=== PATIENT | male | born 1950 | race Caucasian/White ===

== ENCOUNTER 2016-08-10 11:49 | Emergency (ER) | payer OTHER ==
--- NOTE | 2016-08-10 13:29 | ED ORDER SUMMARY ---
..... Patient: QUAN CHAVIS OrderSheet [facility] VisitID: [id number] [address] [place] [address] 65y, M Registration Date/Time: 08/10/2016 ORDER SHEET Weight: 92.9 kg (stated) Allergies: BP MED GENERAL ORDERS: MEDICATION ORDERS: Toradol IM 60 mg (NOW) (13:14 08/10/2016 HBivens A.R.N.P.) (Ack 14:00 DDean R.N.) (15:17 DDean R.N.) IV FLUIDS: ORDER SHEET NOTES: [Electronically signed by Anastasia Mckeon A.R.N.P. (14:15 08/10/2016)] [Electronically signed by Martita Shen R.N. (15:21 08/10/2016)] [Electronically locked/signed by Martita Shen R.N. (15:21 08/10/2016)]
--- NOTE | 2016-08-10 13:29 | ED NURSING NOTES ---
Clinical Report - Nurses [facility] [address] [place] [address] 08/10/2016 11:50 Patient: QUAN CHAVIS TRIAGE Triage time 11:53 Aug 10 2016. Acuity: LEVEL 3. Chief Complaint: BACK PAIN. Alert. No acute distress. (anxious). KERLINE COMA SCORE: [place] Coma Scale: 15- eyes open spontaneously (4); best verbal response- oriented x 4 (5); best motor response- obeys commands (6). --11:58 Carmel Ellis R.N. 11:52 08/10/16. BP: 165/84. HR: 86. RR: 18. O2 saturation: 95%. Temp: 98.2 F. Pain level now 03/11. --11:58 Carmel Ellis R.N. Weight: 92.9 kg stated. Height/Length: 72 inches Per Patient. BMI: 27.8. --11:51 Carmel Ellis R.N. Medications BP med - unknown. --11:56 Carmel Ellis R.N. Lasix Oral (unknown dose). --11:56 Carmel Ellis R.N. Potassium Oral unknown dose. --11:56 Carmel Ellis R.N. Allergies BP MED . --11:57 Carmel Ellis R.N. Medication/allergy information source: the patient (may need to get meds from Ivanna Clark). --11:58 Carmel Ellis R.N. History Arrived by EMS. Historian: patient. Primary physician (Ivanna Clark). 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 03/11. Can not ambulate.). This started just prior to arrival. He has had trouble walking. No history of recent trauma. Occurred at home. Treatment EXTRA HAND: None. PAST MEDICAL HX: Has not received seasonal influenza immunization. SOCIAL HX: Heavy tobacco smoker (cigarette)- more than 2 packs per day. Regular alcohol use. No drug use. No infectious disease exposure. FALL RISK ASSESSMENT: Fall risk assessment completed. No fall risk identified. NUTRITIONAL RISK ASSESSMENT: The nutritional risk assessment revealed no deficiencies. FUNCTIONAL ASSESSMENT: Functional assessment: no impairments noted. LEARNING NEEDS ASSESSMENT: The learning needs assessment revealed no barriers. SKIN INTEGRITY ASSESSMENT: Skin integrity risk assessment completed. No skin integrity risk identified. --11:58 Carmel Ellis R.N. PROBLEMS: Back Pain. COPD - Chronic Obstructive Pulmonary Disease. Hypertension. --11:58 Carmel Ellis R.N. ADDITIONAL SURGERIES: Back Surgery. --11:58 Carmel Ellis R.N. Interventions ID band on patient. To room. --11:58 Carmel Ellis R.N. PHYSICAL ASSESSMENT 11:52. Patient gowned. GENERAL / NEURO / PSYCH: Alert. Oriented X 4. Appears in pain. RESPIRATORY: Respirations not labored. CVS: Capillary refill less than 2 seconds. GI / : Abdomen soft. BACK: Limited ROM. Soft tissue tenderness. --15:21 Martita Shen R.N. NURSING PROGRESS NOTES Patient ready for evaluation- ED physician notified. --11:58 Carmel Ellis R.N. 13:45 08/10/2016 Toradol (Ketorolac Tromethamine) IM 60 mg given. Given in the right ventral gluteus. Allergies verified and confirmed 5 rights. --15:17 Martita Shen R.N. 11:52. Cold pack applied. Patient gowned. Head of bed elevated. Reassurance given. Patient identifiers checked. Call light placed in reach. Side rails up. Bed placed in lowest position. Patient ready for evaluation- chart flagged. Care transferred and report received. --15:20 Martita Shen R.N. DISPOSITION / DISCHARGE 13:50. Condition at departure: unchanged and stable. No learning barriers present. Reviewed medication(s) (flexeril, ultram, motrin). Treatments reviewed (ice, rest). Patient verbalized understanding. Written instructions provided in Kiswahili. The patient was discharged home and unaccompanied at time of discharge. He left the Emergency Department ambulatory and via private vehicle. Patient driving. --15:19 Martita Shen R.N. 13:50 08/10/16. BP: 150/86. HR: 82. RR: 18. O2 saturation: 97%. Temp: deferred. Pain level now: 03/11. --15:19 Martita Sehn R.N. Locked/Released at 08/10/2016 15:21 by Martita Shen R.N.
--- NOTE | 2016-08-10 13:29 | ED ORDER SUMMARY ---
..... Patient: QUAN CHAVIS OrderSheet [facility] VisitID: [id number] [address] [place] [address] 65y, M Registration Date/Time: 08/10/2016 ORDER SHEET Weight: 92.9 kg (stated) Allergies: BP MED GENERAL ORDERS: MEDICATION ORDERS: Toradol IM 60 mg (NOW) (13:14 08/10/2016 HBivens A.R.N.P.) (Ack 14:00 DDean R.N.) (15:17 DDean R.N.) IV FLUIDS: ORDER SHEET NOTES: [Electronically signed by Anastasia Mckeon A.R.N.P. (14:15 08/10/2016)] [Electronically signed by Martita Shen R.N. (15:21 08/10/2016)] [Electronically locked/signed by Martita Shen R.N. (15:21 08/10/2016)]
--- NOTE | 2016-08-10 13:29 | ED CLINICAL REPORT ---
Clinical Report - Physicians/Mid Levels [facility] [address] [place] [address] 08/10/2016 11:50 Patient: QUNA CHAVIS Time Seen: 13:04; initial patient contact, initial documentation, patient care assumed. Arrived- By ambulance. Historian- patient. HISTORY OF PRESENT ILLNESS Chief Complaint: BACK PAIN. It is described as being severe and in the area of the lower lumbar spine and right lower lumbar spine and radiating to the right hip. The quality is noted to be "pain" and similar to prior episodes. Modifying factors- worsened by standing, rotation of the body to the right or left, bending over, lifting, coughing, laughing or taking deep breaths. Not relieved by anything. Onset was just prior to arrival and it is still present but is improving. No bladder dysfunction, bowel dysfunction, sensory loss or motor loss. Patient notes an injury but denies injury to the head or neck. Mechanism of injury- he was lifting and bending. Occurred at home. No other injury. Similar symptoms previously: Chronically. Recent medical care: Not recently seen/assessed. REVIEW OF SYSTEMS No fever, difficulty with urination, urinary frequency or hematuria. All systems otherwise negative, except as recorded above. PAST HISTORY See nurses notes. PROBLEMS: Back Pain. COPD - Chronic Obstructive Pulmonary Disease. Hypertension. --11:58 Carmel Ellis R.N. ADDITIONAL SURGERIES: Back Surgery. --11:58 Carmel Ellis RJasonN. SOCIAL HISTORY Heavy tobacco smoker. Regular alcohol use. No drug use. No recent travel. Is a local resident. FAMILY HISTORY Negative. ADDITIONAL NOTES The nursing notes have been reviewed with agreement regarding the chief complaint, HPI, ROS, PMH and patient medications and allergies. PHYSICAL EXAM Vital Signs: 08/10/2016 11:52 BP: 165/84. HR: 86. RR: 18. O2 saturation: 95%. Temp: 98.2 F. Have been reviewed as normal and appear to be correct. Appearance: Alert. No acute distress. Neck: Normal inspection. Neck nontender. Painless ROM. CVS: Heart sounds normal. Pulses normal. Respiratory: No respiratory distress. Breath sounds normal. Abdomen: No visible injury. Soft and nontender. Back: Abnormal inspection. Back tenderness present. Mild soft tissue tenderness in the right lower lumbar area. No painless ROM. Mildly limited ROM in the back- in the lumbar spine: decreased flexion, right lateral bending, left lateral bending and rotation to the right and left. No muscle spasm in the back, vertebral point tenderness or CVA tenderness. Skin: Skin warm and dry. Normal skin color. No rash. Normal skin turgor. Extremities: Extremities exhibit normal ROM. Neuro: Oriented X 3. Mood/affect normal. No motor deficit. No sensory deficit. PROGRESS AND PROCEDURES Patient counseled in person regarding the patient's stable condition and diagnosis. 13:29. Differential Diagnosis: I considered Musculo-skeletal strain, retroperitoneal hematoma, disk protrusion, sacroiliac joint strain, sciatica, osteoarthritis, lumbar spondylosis, spinal stenosis, ankylosing spondylitis and sacroiliac joint inflammation as a possible cause of back pain in this patient. This is a partial list of diagnoses considered. Above considerations are based on history and physical exam. Differential diagnosis was discussed with patient. Disposition: Discharged home in good and improved condition (13:29). Condition: good and stable. CLINICAL IMPRESSION Acute lumbar strain. INSTRUCTIONS Warnings: GENERAL WARNINGS: Return or contact your physician immediately if your condition worsens or changes unexpectedly, if not improving as expected, or if other problems arise. SPECIFICALLY, return if you develop incontinence of feces (loss of bowel control) or urine (loss of bladder control). Prescription Medications: Flexeril 10 mg: Take 1 orally every 8 hours as needed for muscle spasm. Dispense twenty (20). No refills. Substitution is permissible. Ultram 50 mg tablets: take 1-2 orally every 6 hours as needed for pain. Dispense twenty (20). No refills. Substitution is permissible. Follow-up: Follow up with your doctor in about one week as needed. Call for an appointment. Summary of care provided to patient. Understanding of the discharge instructions verbalized by patient. (Electronically signed by Anastasia Mckeon A.R.N.P. 08/10/2016 14:15)
--- NOTE | 2016-08-10 13:29 | ED NURSING NOTES ---
Clinical Report - Nurses [facility] [address] [place] [address] 08/10/2016 11:50 Patient: QUAN CHAVIS TRIAGE Triage time 11:53 Aug 10 2016. Acuity: LEVEL 3. Chief Complaint: BACK PAIN. Alert. No acute distress. (anxious). KERLINE COMA SCORE: [place] Coma Scale: 15- eyes open spontaneously (4); best verbal response- oriented x 4 (5); best motor response- obeys commands (6). --11:58 Carmel Ellis R.N. 11:52 08/10/16. BP: 165/84. HR: 86. RR: 18. O2 saturation: 95%. Temp: 98.2 F. Pain level now 03/11. --11:58 Carmel Ellis R.N. Weight: 92.9 kg stated. Height/Length: 72 inches Per Patient. BMI: 27.8. --11:51 Carmel Ellis R.N. Medications BP med - unknown. --11:56 Carmel Ellis R.N. Lasix Oral (unknown dose). --11:56 Carmel Ellis R.N. Potassium Oral unknown dose. --11:56 Carmel Ellis R.N. Allergies BP MED . --11:57 Carmel Ellis R.N. Medication/allergy information source: the patient (may need to get meds from Ivanna Clark). --11:58 Carmel Ellis R.N. History Arrived by EMS. Historian: patient. Primary physician (Ivanna Clark). 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 03/11. Can not ambulate.). This started just prior to arrival. He has had trouble walking. No history of recent trauma. Occurred at home. Treatment EMPLOYMENT SERVICES DIRECTOR: None. PAST MEDICAL HX: Has not received seasonal influenza immunization. SOCIAL HX: Heavy tobacco smoker (cigarette)- more than 2 packs per day. Regular alcohol use. No drug use. No infectious disease exposure. FALL RISK ASSESSMENT: Fall risk assessment completed. No fall risk identified. NUTRITIONAL RISK ASSESSMENT: The nutritional risk assessment revealed no deficiencies. FUNCTIONAL ASSESSMENT: Functional assessment: no impairments noted. LEARNING NEEDS ASSESSMENT: The learning needs assessment revealed no barriers. SKIN INTEGRITY ASSESSMENT: Skin integrity risk assessment completed. No skin integrity risk identified. --11:58 Carmel Ellis R.N. PROBLEMS: Back Pain. COPD - Chronic Obstructive Pulmonary Disease. Hypertension. --11:58 Carmel Ellis R.N. ADDITIONAL SURGERIES: Back Surgery. --11:58 Carmel Ellis R.N. Interventions ID band on patient. To room. --11:58 Carmel Ellis R.N. PHYSICAL ASSESSMENT 11:52. Patient gowned. GENERAL / NEURO / PSYCH: Alert. Oriented X 4. Appears in pain. RESPIRATORY: Respirations not labored. CVS: Capillary refill less than 2 seconds. GI / : Abdomen soft. BACK: Limited ROM. Soft tissue tenderness. --15:21 Martita Shen R.N. NURSING PROGRESS NOTES Patient ready for evaluation- ED physician notified. --11:58 Carmel Ellis R.N. 13:45 08/10/2016 Toradol (Ketorolac Tromethamine) IM 60 mg given. Given in the right ventral gluteus. Allergies verified and confirmed 5 rights. --15:17 Martita Shen R.N. 11:52. Cold pack applied. Patient gowned. Head of bed elevated. Reassurance given. Patient identifiers checked. Call light placed in reach. Side rails up. Bed placed in lowest position. Patient ready for evaluation- chart flagged. Care transferred and report received. --15:20 Martita Shen R.N. DISPOSITION / DISCHARGE 13:50. Condition at departure: unchanged and stable. No learning barriers present. Reviewed medication(s) (flexeril, ultram, motrin). Treatments reviewed (ice, rest). Patient verbalized understanding. Written instructions provided in Romanian. The patient was discharged home and unaccompanied at time of discharge. He left the Emergency Department ambulatory and via private vehicle. Patient driving. --15:19 Martita Shen R.N. 13:50 08/10/16. BP: 150/86. HR: 82. RR: 18. O2 saturation: 97%. Temp: deferred. Pain level now: 03/11. --15:19 Martita Shen R.N. Locked/Released at 08/10/2016 15:21 by Martita Shen R.N.
--- NOTE | 2016-08-10 15:21 | ED MAR SUMMARY ---
..... Medication Administration Record [facility] [address] [place] [address] Patient: QUAN CHAVIS Visit ID: [id number] 65y, M Weight: 92.9 kg Height/Length: 72 in BMI: 27.8 ALLERGIES: BP MED Given 13:45 08/10/2016 AcMartita RElidia Medication Administered: TORADOL [IM] (KETOROLAC TROMETHAMINE), Dose: 60 mg IM. Medication Ordered: Toradol IM 60 mg (NOW).
--- NOTE | 2016-08-10 15:21 | ED MAR SUMMARY ---
..... Medication Administration Record [facility] [address] [place] [address] Patient: QUAN CHAVIS Visit ID: [id number] 65y, M Weight: 92.9 kg Height/Length: 72 in BMI: 27.8 ALLERGIES: BP MED Given 13:45 08/10/2016 AcMartita RElidia Medication Administered: TORADOL [IM] (KETOROLAC TROMETHAMINE), Dose: 60 mg IM. Medication Ordered: Toradol IM 60 mg (NOW).
--- NOTE | 2016-08-10 15:21 | ED MED RECONCILIATION SUMMARY ---
Patient: QUAN CHAVIS Medication Reconciliation Report [facility] VisitID: [id number] [address] [place] [address] 65y, M Registration Date/Time: 08/10/2016 Weight: 92.9 kg Height/Length: 72 in. BMI: 27.8 ALLERGIES: BP MED The patient's Home Medications are listed below: THE FOLLOWING MEDICATIONS NEED TO BE RECONCILED: BP med - unknown Lasix Oral, unknown dose Potassium Oral unknown dose The source(s) of the original Home Medication information: patient may need to get meds from Ivanna Clark The following Medications were given to the patient in the Emergency Department: Toradol [IM] IM 60 mg, administered: 08/10/2016 1:45:00 PM The following Medications were prescribed to the patient: Flexeril 10 mg: Take 1 orally every 8 hours as needed for muscle spasm. Dispense twenty (20). No refills. Substitution is permissible. -- Anastasia Mckeon, A.R.N.P. Ultram 50 mg tablets: take 1-2 orally every 6 hours as needed for pain. Dispense twenty (20). No refills. Substitution is permissible. -- Anastasia Mckeon, Eamon.R.N.P.
--- NOTE | 2016-08-10 15:21 | ED DISCHARGE INSTRUCTIONS ---
Patient: QUAN CHAVIS General Instructions [facility] VisitID: [id number] [place] [address] 65y, M Registration Date/Time: 08/10/2016 Acute lumbar strain. INSTRUCTIONS Warnings: GENERAL WARNINGS: Return or contact your physician immediately if your condition worsens or changes unexpectedly, if not improving as expected, or if other problems arise. SPECIFICALLY, return if you develop incontinence of feces (loss of bowel control) or urine (loss of bladder control). Prescription Medications: Flexeril 10 mg: Take 1 orally every 8 hours as needed for muscle spasm. Dispense twenty (20). No refills. Substitution is permissible. Ultram 50 mg tablets: take 1-2 orally every 6 hours as needed for pain. Dispense twenty (20). No refills. Substitution is permissible. Follow-up: Follow up with your doctor in about one week as needed. Call for an appointment. Summary of care provided to patient. Understanding of the discharge instructions verbalized by patient. ADDITIONAL INFORMATION Back Pain [Acute Or Chronic] Back pain is usually caused by an injury to the muscles or ligaments of the spine. Sometimes the disks that separate each bone in the spine may bulge and cause pain by pressing on a nearby nerve. Back pain may also appear after a sudden twisting/bending force (such as in a car accident), after a simple awkward movement, or lifting something heavy with poor body positioning. In either case, muscle spasm is often present and adds to the pain. Acute back pain usually gets better in one to two weeks. Back pain related to disk disease, arthritis in the spinal joints or spinal stenosis (narrowing of the spinal canal) can become chronic and last for months or years. Unless you had a physical injury (for example, a car accident or fall) X-rays are usually not ordered for the initial evaluation of back pain. If pain continues and does not respond to medical treatment, x-rays and other tests may be performed at a later time. Home Care: You may need to stay in bed the first few days. But, as soon as possible, begin sitting or walking to avoid problems with prolonged bed rest (muscle weakness, worsening back stiffness and pain, blood clots in the legs). When in bed, try to find a position of comfort. A firm mattress is best. Try lying flat on your back with pillows under your knees. You can also try lying on your side with your knees bent up towards your chest and a pillow between your knees. Avoid prolonged sitting. This puts more stress on the lower back than standing or walking. During the first two days after injury, apply an ICE PACK to the painful area for 20 minutes every 2-4 hours. This will reduce swelling and pain. HEAT (hot shower, hot bath or heating pad) works well for muscle spasm. You can start with ice, then switch to heat after two days. Some patients feel best alternating ice and heat treatments. Use the one method that feels the best to you. You may use acetaminophen (Tylenol) or ibuprofen (Motrin, Advil) to control pain, unless another pain medicine was prescribed. [NOTE: If you have chronic liver or kidney disease or ever had a stomach ulcer or GI bleeding, talk with your doctor before using these medicines.] Be aware of safe lifting methods and do not lift anything over 15 pounds until all the pain is gone. Follow Up with your doctor or this facility if your symptoms do not start to improve after one week. Physical therapy may be needed. [NOTE: If X-rays were taken, they will be reviewed by a radiologist. You will be notified of any new findings that may affect your care.] Get Prompt Medical Attention if any of the following occur: Pain becomes worse or spreads to your legs Weakness or numbness in one or both legs Loss of bowel or bladder control Numbness in the groin or genital area Cyclobenzaprine Hydrochloride Oral tablet What is this medicine? CYCLOBENZAPRINE (gale cruz) is a muscle relaxer. It is used to treat muscle pain, spasms, and stiffness. How should I use this medicine? Take this medicine by mouth with a glass of water. Follow the directions on the prescription label. If this medicine upsets your stomach, take it with food or milk. Take your medicine at regular intervals. Do not take it more often than directed. Talk to your electronic service technician regarding the use of this medicine in children. Special care may be needed. What side effects may I notice from receiving this medicine? Side effects that you should report to your doctor or health medicare coordinator as soon as possible: allergic reactions like skin rash, itching or hives, swelling of the face, lips, or tongue chest pain fast heartbeat hallucinations seizures vomiting Side effects that usually do not require medical attention (report to your doctor or health medicare coordinator if they continue or are bothersome): headache What may interact with this medicine? Do not take this medicine with any of the following medications: cisapride droperidol flecainide grepafloxacin halofantrine levomethadyl MAOIs like Carbex, Eldepryl, Marplan, Nardil, and Parnate nilotinib pimozide probucol sertindole This medicine may also interact with the following medications: abarelix alcohol contrast dyes dolasetron guanethidine medicines for cancer medicines for depression, anxiety, or psychotic disturbances medicines to treat an irregular heartbeat medicines used for sleep or numbness during surgery or procedure methadone octreotide ondansetron palonosetron phenothiazines like chlorpromazine, mesoridazine, prochlorperazine, thioridazine some medicines for infection like alfuzosin, chloroquine, clarithromycin, levofloxacin, mefloquine, pentamidine, troleandomycin tramadol vardenafil What if I miss a dose? If you miss a dose, take it as soon as you can. If it is almost time for your next dose, take only that dose. Do not take double or extra doses. Where should I keep my medicine? Keep out of the reach of children. Store at room temperature between 15 and 30 degrees C (59 and 86 degrees F). Keep container tightly closed. Throw away any unused medicine after the expiration date. What should I tell my health care provider before I take this medicine? They need to know if you have any of these conditions: heart disease, irregular heartbeat, or previous heart attack liver disease thyroid problem an unusual or allergic reaction to cyclobenzaprine, tricyclic antidepressants, lactose, other medicines, foods, dyes, or preservatives or trying to get breast-feeding What should I watch for while using this medicine? Check with your doctor or health medicare coordinator if your condition does not improve within 1 to 3 weeks. You may get drowsy or dizzy when you first start taking the medicine or change doses. Do not drive, use machinery, or do anything that may be dangerous until you know how the medicine affects you. Stand or sit up slowly. Your mouth may get dry. Drinking water, chewing sugarless gum, or sucking on hard candy may help. Tramadol Hydrochloride Oral tablet What is this medicine? TRAMADOL (TRA ma dole) is a pain reliever. It is used to treat moderate to severe pain in adults. How should I use this medicine? Take this medicine by mouth with a full glass of water. Follow the directions on the prescription label. If the medicine upsets your stomach, take it with food or milk. Do not take more medicine than you are told to take. Talk to your electronic service technician regarding the use of this medicine in children. Special care may be needed. What side effects may I notice from receiving this medicine? Side effects that you should report to your doctor or health medicare coordinator as soon as possible: allergic reactions like skin rash, itching or hives, swelling of the face, lips, or tongue breathing difficulties, wheezing confusion itching light headedness or fainting spells redness, blistering, peeling or loosening of the skin, including inside the mouth seizures Side effects that usually do not require medical attention (report to your doctor or health medicare coordinator if they continue or are bothersome): constipation dizziness drowsiness headache nausea, vomiting What may interact with this medicine? Do not take this medicine with any of the following medications: MAOIs like Carbex, Eldepryl, Marplan, Nardil, and Parnate This medicine may also interact with the following medications: alcohol or medicines that contain alcohol antihistamines benzodiazepines bupropion carbamazepine or oxcarbazepine clozapine cyclobenzaprine digoxin furazolidone linezolid medicines for depression, anxiety, or psychotic disturbances medicines for migraine headache like almotriptan, eletriptan, frovatriptan, naratriptan, rizatriptan, sumatriptan, zolmitriptan medicines for pain like pentazocine, buprenorphine, butorphanol, meperidine, nalbuphine, and propoxyphene medicines for sleep muscle relaxants naltrexone phenobarbital phenothiazines like perphenazine, thioridazine, chlorpromazine, mesoridazine, fluphenazine, prochlorperazine, promazine, and trifluoperazine procarbazine warfarin What if I miss a dose? If you miss a dose, take it as soon as you can. If it is almost time for your next dose, take only that dose. Do not take double or extra doses. Where should I keep my medicine? Keep out of the reach of children. Store at room temperature between 15 and 30 degrees C (59 and 86 degrees F). Keep container tightly closed. Throw away any unused medicine after the expiration date. What should I tell my health care provider before I take this medicine? They need to know if you have any of these conditions: brain tumor depression drug abuse or addiction head injury if you frequently drink alcohol containing drinks kidney disease or trouble passing urine liver disease lung disease, asthma, or breathing problems seizures or epilepsy suicidal thoughts, plans, or attempt; a previous suicide attempt by you or a family member an unusual or allergic reaction to tramadol, codeine, other medicines, foods, dyes, or preservatives or trying to get breast-feeding What should I watch for while using this medicine? Tell your doctor or health medicare coordinator if your pain does not go away, if it gets worse, or if you have new or a different type of pain. You may develop tolerance to the medicine. Tolerance means that you will need a higher dose of the medicine for pain relief. Tolerance is normal and is expected if you take this medicine for a long time. Do not suddenly stop taking your medicine because you may develop a severe reaction. Your body becomes used to the medicine. This does NOT mean you are addicted. Addiction is a behavior related to getting and using a drug for a non-medical reason. If you have pain, you have a medical reason to take pain medicine. Your doctor will tell you how much medicine to take. If your doctor wants you to stop the medicine, the dose will be slowly lowered over time to avoid any side effects. You may get drowsy or dizzy. Do not drive, use machinery, or do anything that needs mental alertness until you know how this medicine affects you. Do not stand or sit up quickly, especially if you are an older patient. This reduces the risk of dizzy or fainting spells. Alcohol can increase or decrease the effects of this medicine. Avoid alcoholic drinks. You may have constipation. Try to have a bowel movement at least every 2 to 3 days. If you do not have a bowel movement for 3 days, call your doctor or health medicare coordinator. Your mouth may get dry. Chewing sugarless gum or sucking hard candy, and drinking plenty of water may help. Contact your doctor if the problem does not go away or is severe. You have been given the following additional information: Back Pain (Acute Or Chronic) Cyclobenzaprine Hydrochloride Oral tablet Tramadol Hydrochloride Oral tablet (Electronically signed by Anastasia Mckeon A.R.N.P. 08/10/2016 14:15)
--- NOTE | 2016-08-10 15:21 | ED MED RECONCILIATION SUMMARY ---
Patient: QUAN CHAVIS Medication Reconciliation Report [facility] VisitID: [id number] [address] [place] [address] 65y, M Registration Date/Time: 08/10/2016 Weight: 92.9 kg Height/Length: 72 in. BMI: 27.8 ALLERGIES: BP MED The patient's Home Medications are listed below: THE FOLLOWING MEDICATIONS NEED TO BE RECONCILED: BP med - unknown Lasix Oral, unknown dose Potassium Oral unknown dose The source(s) of the original Home Medication information: patient may need to get meds from [facility] The following Medications were given to the patient in the Emergency Department: Toradol [IM] IM 60 mg, administered: 08/10/2016 1:45:00 PM The following Medications were prescribed to the patient: Flexeril 10 mg: Take 1 orally every 8 hours as needed for muscle spasm. Dispense twenty (20). No refills. Substitution is permissible. -- Anastasia Mckeon, A.R.N.P. Ultram 50 mg tablets: take 1-2 orally every 6 hours as needed for pain. Dispense twenty (20). No refills. Substitution is permissible. -- Anastasia Mckeon, Eamon.R.N.P.
== END 2016-08-10 13:50 | disposition home or self-care (01) ==
LOC: ED SRH 11:49
DX: S39.012A Strain of muscle, fascia and tendon of lower back, initial encounter (principal); X50.0XXA Overexertion from strenuous movement or load, initial encounter; Y93.9 Activity, unspecified; Y92.009 Unspecified place in unspecified non-institutional (private) residence as the place of occurrence of the external cause; Y99.9 Unspecified external cause status; I10 Essential (primary) hypertension; J44.9 Chronic obstructive pulmonary disease, unspecified; F17.210 Nicotine dependence, cigarettes, uncomplicated

== ENCOUNTER 2016-10-30 12:54 | Outpatient (CLI) | payer OTHER ==
--- NOTE | 2016-10-30 16:34 | DIAGNOSTIC IMAGING REPORT ---
PROCEDURE: US ART LOW EXT WITH AMY-RIGHT INDICATION: RIGHT LEG PAIN TECHNIQUE: Color Doppler duplex imaging of the right lower extremity arterial system was performed. Pre exercise ABIs were acquired. The patient was unable to exercise secondary to rest pain. COMPARISON: None. FINDINGS: ABIs: Pre exercise posterior tibial: 0.57. Pre exercise dorsalis pedis: 0.58. VESSELS/ WAVEFORMS: Focal densely shadowing calcific plaque in the distal external iliac artery causing turbulent flow in the common femoral. Shadowing irregular mixed calcified and noncalcified plaque in the common femoral artery as well. Scattered focal calcific plaque throughout the superficial femoral artery without causing significant focal stenosis. Monophasic arterial inflow and monophasic arterial flow throughout the lower extremity. PEAK SYSTOLIC VELOCITIES: External iliac: 102 cm/second. Common femoral artery: 180 cm/second. Profunda femoral artery: 31 cm/second. Proximal superficial femoral artery: 110 cm/second. Mid superficial femoral artery: 74 cm/second. Distal superficial femoral artery: 45 cm/second. Popliteal artery: 47 cm/second. Proximal posterior tibial artery: 20 cm/second. Proximal anterior tibial artery: 13 cm/second. Peroneal artery: 10 cm/second. Distal posterior tibial artery: 11 cm/second. Dorsalis pedis artery: 13 cm/second. IMPRESSION: 1. Prominent focal arterial stenosis in the distal external iliac artery and throughout the common femoral artery but without causing a significant distal velocity elevation. 2. Monophasic arterial flow throughout the lower extremity suggestive of diffuse atherosclerosis. 3. Given ankle-brachial indices, there is moderate resting arterial insufficiency in the posterior tibial and dorsalis pedis artery distribution, suspected to be underestimated by this exam given presence of rest pain.
--- NOTE | 2016-10-30 17:24 | DIAGNOSTIC IMAGING REPORT ---
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 The study quality was technically adequate. The patient was in normal sinus rhythm during the exam. Left Ventricle: The left ventricle is normal in size. There is borderline concentric left ventricular hypertrophy. Left ventricular systolic function is normal. The ejection fraction is estimated to be 65-70%. There are no obvious focal wall motion abnormalities noted but poor endocardial definition reduces the sensitivity for the detection of such. Assessment of diastolic parameters indicates a relaxation abnormality of the left ventricle, consistent with normal filling pressures. Right Ventricle: The right ventricle is normal size. The right ventricle is hyperdynamic. Atria: The left atrium is mildly dilated. The right atrium grossly appears normal in size. The interatrial septum is intact with no evidence for an atrial septal defect. Mitral Valve: There is moderate mitral annular calcification. There is trace mitral regurgitation. Aortic Valve: The aortic valve is not well visualized. The aortic valve is mildly calcified. There is no aortic regurgitation. Tricuspid Valve: The tricuspid valve is normal in structure and function. There is a trace or physiologic amount of tricuspid regurgitation. Pulmonary artery pressures cannot be estimated because of the lack of a measurable TR jet velocity. Pulmonic Valve: The pulmonic valve is not well visualized. There is no significant valvular heart disease. Great Vessels: The aortic root is normal size. The dimensions of the ascending aorta are normal. The IVC is of normal diameter and collapses greater than 50% with a sniff. This suggests a low right atrial pressure of 3 mm Hg. Pericardium/ Pleura There is no pericardial effusion. IMPRESSION: There is borderline concentric left ventricular hypertrophy. Left ventricular systolic function is normal. The ejection fraction is estimated to be 65-70%. There are no obvious focal wall motion abnormalities noted but poor endocardial definition reduces the sensitivity for the detection of such. Assessment of diastolic parameters indicates a relaxation abnormality of the left ventricle, consistent with normal filling pressures. The right ventricle is normal size. The right ventricle is hyperdynamic. The left atrium is mildly dilated. The right atrium grossly appears normal in size. There is no significant valvular heart disease. The aortic root is normal size.
== END 2016-10-30 23:00 ==
LOC: US SRH 12:54
DX: I70.201 Unspecified atherosclerosis of native arteries of extremities, right leg (principal); I77.1 Stricture of artery; I51.7 Cardiomegaly